=== PATIENT | female | born 1955 | race Caucasian/White ===

== ENCOUNTER → 2017-05-09 | Day surgery (SDC) | payer OTHER ==
[~2017-05-09] MED LIST: AMIT25TA20 PO; GLUCTAB PO; LACTATED RINGER'S 1000 ML INJ 1,000 ML ONE; MAXA10TA2 PO; METO50CR PO; PROPOFOL 500 MG/50 ML BTL IV ONE; SERT-129 PO; SIMETHICONE SUSP DROPS 40 MG/0.6 ML 30 ML BTL ONE
--- NOTE | 2017-05-09 11:50 | GIPROC ---
[facility] [address] [address] [facility], [address] COLONOSCOPY PROCEDURE REPORT EXAM DATE: 05/09/2017 PATIENT NAME: Maureen Altamirano MR #: [id number] BIRTHDATE: 1955 ENDOSCOPIST: Lesli Boone MD ORDER #: [id number] [employer]CHNICIAN: STATUS: outpatient INDICATIONS: The patient is a 62 yr old female here for a colonoscopy due to screening, constipation, ocassional rectal bleeding PROCEDURE PERFORMED: Colonoscopy with biopsy MEDICATIONS: None and Per Anesthesia. PREP QUALITY: good PREP TYPE:Other: ESTIMATED BLOOD LOSS: None CONSENT: The patient understands the risks and benefits of the procedure and understands that these risks include, but are not limited to: sedation, allergic reaction, infection, perforation and/or bleeding. Alternative means of evaluation and treatment include, among others: physical exam, x-rays, and/or surgical intervention. The patient elects to proceed with this endoscopic procedure. medical equipment was checked for proper function. Hand hygiene and appropriate measures for infection prevention was taken. After the risks, benefits and alternatives of the procedure were thoroughly explained, Informed consent was verified, confirmed and timeout was successfully executed by the treatment team. A digital exam revealed external hemorrhoids The EC-[id number] ([id number]) endoscope was introduced through the anus and advanced to the cecum, which was identified by both the appendix and ileocecal valve. The instrument was then slowly withdrawn as the colon was fully examined. COLON FINDINGS: Submucosal nodule ascending colon-pillow sign present most likley lipoma-biopsy. Largea amount of bile. Retroflexed views revealed internal hemorrhoids and Retroflexed views revealed small internal hemorrhoids The scope was then completely withdrawn from the patient and the procedure terminated. PROCEDURE WITHDRAWAL TIME:6minutes ADVERSE EVENTS: There were no complications. IMPRESSIONS: 1. Submucosal nodule ascending colon-pillow sign present most likley lipoma-biopsy 2. Largea amount of bile 3. Retroflexed views revealed internal hemorrhoids 4. Retroflexed views revealed small internal hemorrhoids 5. Revealed external hemorrhoids RECOMMENDATIONS: 1. Await biopsy results. Biopsy results will not be ready for 7-10 days. If you don't hear from us in two weeks, call our office for results. 2. Probiotics from any [facility] or health food store RECALL: Colonoscopy, pending biopsy results Lesli Boone MD eSigned: Lesli Boone MD 05/09/2017 11:49 AM cc: [facility] and Dahiana Goldberg M.D.
--- NOTE | 2017-05-09 11:53 | GIPROC ---
[facility] [address] [facility], [address] EGD PROCEDURE REPORT EXAM DATE: 05/09/2017 PATIENT NAME: Maureen Altamirano MR #: [id number] BIRTHDATE: 1955 ATTENDING: Lesli Boone MD ORDER #: [id number] LEGAL COUNSEL: STATUS: outpatient INDICATIONS: The patient is a 62 yr old female here for an EGD due to reflux PROCEDURE PERFORMED: EGD w/ biopsy MEDICATIONS: None and Per Anesthesia. TOPICAL ANESTHETIC: none CONSENT: The patient understands the risks and benefits of the procedure and understands that these risks include, but are not limited to: sedation, allergic reaction, infection, perforation and/or bleeding. Alternative means of evaluation and treatment include, among others: physical exam, x-rays, and/or surgical intervention. The patient elects to proceed with this endoscopic procedure. medical equipment was checked for proper function. Hand hygiene and appropriate measures for infection prevention was taken. After the risks, benefits and alternatives of the procedure were thoroughly explained, Informed consent was verified, confirmed and timeout was successfully executed by the treatment team. The patient was anesthetized with topical anesthesia and the EC-3890Li ([id number]) endoscope was introduced through the mouth and advanced to the proximal jejunum. Retroflexed views revealed no abnormalities The gastroscope was then slowly withdrawn and removed. Gastric body polyps-gastric body-biopsy irregular z line -biopsy. ADVERSE EVENTS: There were no complications. IMPRESSIONS: 1. Gastric body polyps-gastric body-biopsy irregular z line -biopsy 2. Retroflexed views revealed no abnormalities RECOMMENDATIONS: 1. Await biopsy results. Biopsy results will not be ready for 7-10 days. If you don't hear from us in two weeks, call our office for biopsy results. 2. Anti-reflux regimen 3. Avoid NSAIDS PATIENT CONDITION: stable DISPOSITION: Home REPEAT EXAM: EGD pending biopsy results Lesli Boone MD eSigned: Lesli Boone MD 05/09/2017 11:53 AM cc: [facility] M[facility]
== END | disposition home or self-care (01) ==
LOC: ESDC 09:23
PROVIDERS: ATTEND Internal Medicine Gastroenterology
DX: K59.00 Constipation, unspecified (principal); K21.9 Gastro-esophageal reflux disease without esophagitis; K62.5 Hemorrhage of anus and rectum; K64.8 Other hemorrhoids; K63.89 Other specified diseases of intestine; K31.7 Polyp of stomach and duodenum; K22.9 Disease of esophagus, unspecified; E11.9 Type 2 diabetes mellitus without complications; Z79.84 Long term (current) use of oral hypoglycemic drugs
CPT/HCPCS: 00740; 00810; 43239; 45380; 82948; 88305; J3010; J7120